=== PATIENT | female | born 1970 | race Caucasian/White ===

== ENCOUNTER 2016-07-08 13:10 | Emergency (ER) | payer MEDICAID ==
[~2016-07-08 13:10] MED LIST: ALBU8.5H5 INH; Hydrocodone Bit/Acetaminophen PO; POLY17PO5 PO; QUET100T4 PO; RISP0.5T18 PO; ZIPR20VI PO
== END 2016-07-08 14:04 | disposition left against medical advice (07) ==
LOC: ED 13:58
DX: M79.672 Pain in left foot (principal)

== ENCOUNTER 2016-07-08 14:12 | Emergency (ER) | payer MEDICAID ==
[~2016-07-08] VITALS: Ht 165.1 cm; Wt 85.6 kg
[2016-07-08 14:26] VITALS: BP 110/72
== END 2016-07-08 16:56 | disposition home or self-care (01) ==
LOC: ED 16:50
DX: F22 Delusional disorders (principal); F31.9 Bipolar disorder, unspecified; F41.1 Generalized anxiety disorder; F17.200 Nicotine dependence, unspecified, uncomplicated; F29 Unspecified psychosis not due to a substance or known physiological condition; Z88.8 Allergy status to other drugs, medicaments and biological substances
CPT/HCPCS: 99281

== ENCOUNTER 2018-10-18 19:57 | Emergency (ER) | payer MEDICAID ==
[~2018-10-18] VITALS: Ht 167.6 cm; Wt 91.4 kg
[2018-10-18 20:08] VITALS: BP 147/69
== END 2018-10-18 23:25 | disposition home or self-care (01) ==
LOC: ED 23:00
DX: T17.1XXA Foreign body in nostril, initial encounter (principal); F31.9 Bipolar disorder, unspecified; F41.1 Generalized anxiety disorder; J45.909 Unspecified asthma, uncomplicated; W26.8XXA Contact with other sharp object(s), not elsewhere classified, initial encounter; Y93.89 Activity, other specified; Y92.89 Other specified places as the place of occurrence of the external cause; Y99.8 Other external cause status
CPT/HCPCS: 30300; 70160; 99284

== ENCOUNTER 2019-03-04 14:28 | Emergency (ER) | payer MEDICAID ==
[~2019-03-04] VITALS: Ht 165.1 cm; Wt 100.1 kg
[~2019-03-04 14:28] MED LIST changes: -RISP0.5T18 PO; +RISP0.5T24 PO
[2019-03-04 14:33] VITALS: BP 124/77
--- NOTE | 2019-03-04 15:23 | NUR ---
pt given dc instructions and script, educated regarding rx for albuterol. pt amb to dc desk with steady gait, nadn at dc.
== END 2019-03-04 15:24 ==
LOC: ED 15:13
DX: S90.512A Abrasion, left ankle, initial encounter (principal); R00.0 Tachycardia, unspecified; J45.909 Unspecified asthma, uncomplicated; F17.200 Nicotine dependence, unspecified, uncomplicated; X58.XXXA Exposure to other specified factors, initial encounter; Y93.89 Activity, other specified; Y92.89 Other specified places as the place of occurrence of the external cause; Y99.8 Other external cause status
CPT/HCPCS: 99283

== ENCOUNTER 2019-07-02 07:58 | Emergency (ER) | payer MEDICAID ==
[~2019-07-02] VITALS: Ht 162.6 cm; Wt 87.1 kg
[2019-07-02 08:01] VITALS: BP 99/76
== END 2019-07-02 08:37 | disposition left against medical advice (07) ==
LOC: ED 08:26
DX: Z53.21 Procedure and treatment not carried out due to patient leaving prior to being seen by health care provider (principal)

== ENCOUNTER 2020-11-17 00:09 | Emergency (ER) | payer MEDICAID ==
[~2020-11-17] VITALS: Ht 162.6 cm; Wt 78.0 kg
--- NOTE | 2020-11-17 00:10 | NUR ---
called pt x1. NIL.
[2020-11-17 03:27] VITALS: BP 154/79
== END 2020-11-17 03:29 | disposition home or self-care (01) ==
LOC: MERGE 00:19 → ED 00:19
DX: S02.31XA Fracture of orbital floor, right side, initial encounter for closed fracture (principal); S00.11XA Contusion of right eyelid and periocular area, initial encounter; Z76.0 Encounter for issue of repeat prescription; F17.210 Nicotine dependence, cigarettes, uncomplicated; W01.0XXA Fall on same level from slipping, tripping and stumbling without subsequent striking against object, initial encounter; Y93.89 Activity, other specified; Y92.89 Other specified places as the place of occurrence of the external cause; Y99.8 Other external cause status
CPT/HCPCS: 70450; 99406